=== PATIENT | female | born 1955 | race African-American/Black ===

== ENCOUNTER → 2018-01-06 | Outpatient (CLI) | payer OTHER ==
[~2018-01-06] MED LIST: ALDACTONE25 MG PO; AMOXICILLIN 50500 M1 PO; ASPIRIN325 PO; CATAPRES0.2 MG PO; CLONIDINE0.1 PO; COLACE100 MG PO; COZAAR 25 MG TA25 M1 PO; COZAAR 50 MG TA50 M2 PO; HYZAAR 100-251 EACH PO; MIRALAX17 GM PO; NORVASC10 MG PO; SENNA PO; TYLENOL325 MG PO
== END ==
LOC: RAD 12:53
DX: Z12.31 Encounter for screening mammogram for malignant neoplasm of breast (principal)

== ENCOUNTER → 2018-01-10 | Outpatient (CLI) | payer OTHER | LOC: RAD 04:02 | DX: N63.10 Unspecified lump in the right breast, unspecified quadrant (principal); R92.2 Inconclusive mammogram ==